=== PATIENT | female | born 1975 | race Two or more races ===

== ENCOUNTER 2016-10-02 09:34 | Day surgery (SDC) | payer OTHER ==
[2016-10-01 15:56] VITALS: BMI 35.6
--- NOTE | 2016-10-01 19:38 | PREOPHP ---
DATE OF ADMISSION: 10/02/2016 REASON FOR ADMISSION: A 41-year-old patient is going to be admitted for outpatient surgery, diagnostic arthroscopy of left knee, partial meniscectomy, possible repair, total synovectomy, removal of loose bodies, ____. HISTORY OF PRESENT ILLNESS: This 41-year-old patient has been experiencing left knee pain for quite a while. Conservative treatment resulted in limited benefit to the patient. The patient has requested surgical intervention. PAST MEDICAL HISTORY: Unremarkable. SOCIAL HISTORY: Nonsmoker, nondrinker. FAMILY HISTORY: Negative. ALLERGIES: NO HISTORY OF ALLERGY TO MEDICATION. PHYSICAL EXAMINATION: SKIN: Within normal limits. EYES: PERRLA. HEAD AND NECK: Normocephalic. Trachea midline. Bilateral symmetrical carotid pulses. No mass, no bruit, no lymphadenopathy. CARDIOVASCULAR: Normal sinus rhythm. S1, S2 normal. No murmur. No JVD. No peripheral edema. LUNGS: Clear. ABDOMEN: Protuberant. No organomegaly. No mass. Bowel sounds present. GENITOURINARY: Rectal not done, not pertinent to this admission. MUSCULOSKELETAL: Height 5 feet 6 inches, 210 pounds. Slight tenderness in the sternocleidomastoid and trapezius muscle. The shoulder ____ symmetrical and normal. Slight tenderness over the L5-S1 with 80% range of motion of spine. There is mild tenderness over the right and left greater trochanteric area and iliotibial band. Left knee range of motion is from 5 to 120 degrees. Right knee is from 0 to 130 degrees. There is mild effusion present. There is synovitis present. Tenderness over the medial and lateral tibiofemoral joint line and patellofemoral joint. There is marked tenderness over the patellar tendon. Positive Tavo test. NEUROLOGIC: Intact. IMAGING: Radiologic report of the right knee, moderate to severe DJD shown. MRI of the left knee indicates complete tear of the medial meniscus and arthrosis of the medial compartment, small tear of the lateral meniscus, mild partial thickness chondral loss of the lateral, severe osteochondral loose bodies throughout the knee. Loose body measuring 2.5 cm in suprapatellar pouch. DIAGNOSES: 1. Torn medial meniscus. 2. Torn lateral meniscus. 3. Multiple loose bodies, largest one is 2.5 cm. 4. Chronic synovitis 5. Plica syndrom TREATMENT PLAN: Alternatives, risks, and benefits discussed. The patient understands possible complications such as infection, bleeding, nerve damage, vascular damage, possibility of deep venous thrombosis, pulmonary embolism, hypersensitivity, and even . Warren result may not be obtained depending on other known or unknown factor or factors. Formal H and P is supposed to be done by PCP. Dictated By: MARKO ALEXANDRE/FIORDALIZA Conf#: [id number] DID#: [id number] MTDD
[~2016-10-02] VITALS: Ht 167.6 cm; Wt 101.3 kg
[2016-10-02] VITALS (15 sets, daily range): BP systolic 113–141; BP diastolic 55–71; PULSE 62–83; RESP 9–20; Ht 167.6 cm; Wt 101.3 kg
[2016-10-02] MEDS ORDERED: CEFAZOLIN 2 GM/50 ML (PMX) 50 ML IVPB SCH (12:00)
[2016-10-02] MEDS ORDERED: EPINEPHrine 1 MG/ML 30 ML INJ ONE (12:12)
[2016-10-02] MEDS ORDERED: morphine SULFATE/PF (10 MG/10 ML) INJ ONE (12:12)
[2016-10-02] MEDS ORDERED: MIDAZOLAM 1 MG/ML 2 ML INJ ONE (12:33)
[2016-10-02] MEDS ORDERED: FENTAnyl 50 MCG/ML VIAL ONE ×2 (12:33→13:58)
[2016-10-02] MEDS ORDERED: PROPOFOL 20 ML ONE (12:33)
[2016-10-02] MEDS ORDERED: ONDANSETRON 4 MG INJ ONE (12:33)
[2016-10-02] MEDS ORDERED: DEXAMETHASONE 4 MG/ML 1 ML INJ ONE (12:33)
[2016-10-02] MEDS ORDERED: SUCCINYLCHOLINE CHLORIDE 100 MG/5 ML SYG IV ONE (12:33)
[2016-10-02] MEDS ORDERED: ROCURONIUM 50 MG INJ ONE (12:33)
[2016-10-02] MEDS ORDERED: GLYCOPYRROLATE 0.4 MG INJ ONE (14:20)
[2016-10-02] MEDS ORDERED: FLUMAZENIL 0.5 MG INJ ONE (14:20)
[2016-10-02] MEDS ORDERED: NEOSTIGMINE 3 MG/3 ML SYRINGE ONE (14:20)
[2016-10-02] MEDS ORDERED: ROPIVACAINE 0.5 % 30 ML VIAL ONE (14:21)
[2016-10-02] MEDS: HYDROmorphONE (0.2 MG/ML) 10ML SYG IV PRN ×5 (14:56→16:00)
[2016-10-02] MEDS: FENTAnyl 50 MCG/ML VIAL IV PRN ×2 (14:59→15:13)
[2016-10-02] MEDS: ONDANSETRON 4 MG INJ IV PRN ×2 (14:59→16:00)
[2016-10-02] MEDS ORDERED: KETOROLAC 30 MG INJ IV ONE (15:00)
[2016-10-02] MEDS ORDERED: EPHEDrine SULFATE 50 MG/5 ML SYG IV PRN (15:00)
[2016-10-02] MEDS ORDERED: HYDROCODONE/APAP (5/325) TAB PO PRN ×2 (15:00)
[2016-10-02] MEDS ORDERED: MIDAZOLAM 1 MG/ML 2 ML INJ IV PRN (15:00)
[2016-10-02] MEDS ORDERED: MEPERIDINE 25 MG INJ IV PRN (15:00)
[2016-10-02] MEDS ORDERED: HYDROmorphONE (0.2 MG/ML) 10ML SYG IV PRN ×2 (15:00)
[2016-10-02] MEDS ORDERED: hydrALAzine 20 MG INJ IV PRN (15:00)
--- NOTE | 2016-10-02 15:53 | OPR ---
DATE OF OPERATION: 10/02/2016 PREOPERATIVE DIAGNOSES: 1. Torn medial meniscus. 2. Torn lateral meniscus. 3. Multiple loose bodies. 4. Chronic synovitis, plica syndrome, left knee. POSTOPERATIVE DIAGNOSES: 1. Torn medial meniscus. 2. Torn lateral meniscus. 3. Multiple loose bodies. 4. Chronic synovitis, plica syndrome, left knee. OPERATION PERFORMED: Diagnostic arthroscopy, partial medial meniscectomy, partial lateral meniscect abhishek, ptosis synovectomy, plica band release, mini arthrotomy and removal of loose body left knee. ANESTHESIA: General. BLEEDING: Minimal. COMPLICATIONS: None. OPERATIVE PROCEDURE: The patient was transferred to the operating room and placed on the table in s upine position and general anesthesia was induced. Two grams of Ancef was given IV. Left lower ext remity was prepped and draped in routine fashion. Landmarks were marked, 2 anterior portals and ope rative arthroscopy was commenced. Examination of suprapatellar pouch indicated a complete shelf goi ng from the ceiling to medial and lateral gutter and one was blocking the suprapatellar pouch. Ther e was one loose body in front of this band and there was one huge loose body posteriorly to the wei f. The anterior one was 1 cm x 1 cm through a superolateral portal and was removed. However, the o ther one measured 3.5 x 4.5 cm x 1.5 cm, almost the size of an egg. It had to be removed through a mini arthrotomy, which was then superolaterally and a huge piece was removed. The mini arthrotomy at this point was closed with 2-0 Vicryl and 0 Vicryl in 2 layers and we proceeded with the remainde r of the procedure. There was absence of loose body in medial and lateral gutter. 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 However, the remainder of the patella showed only grade I to II chondromalacia. 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 There was marked synovitis present in the medial compartment. Therefore, partial medial meniscect abhishek to stable margins was done and ptosis synovectomy with coagulation with Arthrocare Bovie was per formed. The ACL was partially disrupted. There was synovitis present in the intercondylar notch an d anteriorly and therefore, total synovectomy was done. Going to the lateral compartment, there was lateral meniscal tear in the anterior horn and posterior horn. Therefore, partial lateral meniscec nichol to stable margins was done and also because of synovitis, total synovectomy was done. Going to suprapatellar pouch, the inferior pole of patella, synovitis was seen. Therefore, total synovectom y was done. In the suprapatellar pouch also there was chronic synovitis. Therefore, total synovect abhishek was performed. The knee joint was evacuated from debris with copious amount of saline irrigatio n. Portal was closed with Mastisol and Steri-Strips. The skin of superolateral patella which was c lose to 1 inch was closed with Mastisol and Steri-Strips. Duramorph 10 mg which was consisting of 1 0 mL was mixed with 10 mL of injectable saline and was injected into the knee. Sterile Whitaker dressi ng was applied. Procedure was terminated. General anesthesia was stopped. Patient was taken to re covery room in good and stable condition. Dictated By: MARKO ALEXANDRE/FIORDALIZA Conf#: [id number] DID#: [id number]
== END 2016-10-02 18:02 | disposition home or self-care (01) ==
LOC: SDS 09:34
PROVIDERS: ATTEND Internal Medicine Endocrinology, Diabetes & Metabolism
DX: M23.204 Derangement of unspecified medial meniscus due to old tear or injury, left knee (principal); M23.242 Derangement of anterior horn of lateral meniscus due to old tear or injury, left knee; M23.252 Derangement of posterior horn of lateral meniscus due to old tear or injury, left knee; M23.42 Loose body in knee, left knee; M65.9 Synovitis and tenosynovitis, unspecified; M67.52 Plica syndrome, left knee; E66.01 Morbid (severe) obesity due to excess calories; Z68.36 Body mass index [BMI] 36.0-36.9, adult
CPT/HCPCS: 29880; 84703; 88304; 88311; C1713; J0171; J1100; J1170; J1885; J2175; J2250; J2274; J2405; J2710; J3010; Z7512; Z7610; J0330; J2795